=== PATIENT | male | born 1985 | race Caucasian/White ===

== ENCOUNTER → 2021-09-08 | Day surgery (SDC) | payer OTHER ==
[~2021-09-08] VITALS: Ht 182.9 cm; Wt 130.2 kg
[~2021-09-08] MED LIST: ADVIL200 M1 PO; LISINOPRIL-HCT1 EAC1 PO; TESTOSTERONE50 MG TOP
[2021-09-08 07:48] LABS: BASOPHIL 1.1 % (0-2); EOSINOPHIL 3.3 % (0-5); HCT 44.6 % (42.0-52.0); HGB 16.1 g/dl (13.2-18.0); LYMPHOCYTE 23.8 % (15-48); MCH 33.2 pg (25.0-31.0); MCHC 36.1 g/dL (32.0-36.0); MONOCYTE 7.4 % (0-12); MPV 9.4 fL (6.0-9.5); NEUTROPHIL 63.8 % (41-80); NRBC 0; PLT 222 K/uL (150-400); RBC 4.85 M/uL (4.70-6.00); RDW 12.4 % (11.5-14.0); WBC 8.4 K/uL (4.0-10.5)
[2021-09-08 08:15] LABS: BILIRUBIN - TOTAL 0.6 mg/dL (0.2-1.0); BUN/CREAT RATIO (CALC) 20.3 RATIO; CREATININE 0.69 mg/dL (0.67-1.17); GLOBULIN (CALCULATION) 3.6 g/dL; INR 0.99 (0.9-1.2); POTASSIUM 3.8 mmol/L (3.5-5.1); PROTHROMBIN TIME 12.5 SECONDS (11.8-13.4); PTT 29.7 SECONDS (24.4-34.7); TOTAL PROTEIN 7.6 g/dL (6.4-8.2)
== END | disposition home or self-care (01) ==
LOC: FAS 08-04 09:15
PROVIDERS: Oral & Maxillofacial Surgery
DX: K02.9 Dental caries, unspecified (principal); K04.7 Periapical abscess without sinus; I10 Essential (primary) hypertension; F10.10 Alcohol abuse, uncomplicated; K21.9 Gastro-esophageal reflux disease without esophagitis; E78.00 Pure hypercholesterolemia, unspecified; E66.9 Obesity, unspecified; F17.200 Nicotine dependence, unspecified, uncomplicated; Z68.38 Body mass index [BMI] 38.0-38.9, adult; Z79.1 Long term (current) use of non-steroidal anti-inflammatories (NSAID); Z79.899 Other long term (current) drug therapy
CPT/HCPCS: D7140; D7210; 36415; 80053; 85025; 85610; 85730; 93005; J1100; J2001; J2250; J2405; J2704; J2765; J3010; J7120